=== PATIENT | male | born 1940 | race Caucasian/White ===

== ENCOUNTER → 2018-04-25 13:58 | Outpatient (CLI) | payer OTHER, MEDICARE, SELFPAY ==
--- NOTE | 2018-04-25 | DI.US.S_ITS ---
PROCEDURE: US ABDOMEN COMPLETE INDICATIONS: ABDOMINAL MASS TECHNIQUE: Real-time scanning was performed of the abdominal and retroperitoneal organs, with image documentation. COMPARISON: None. FINDINGS: Liver: Liver is normal in size and homogeneous in echotexture. Gallbladder: No gallstones identified. Normal gallbladder wall. No pericholecystic fluid. Negative sonographic Nunez sign. Biliary ducts: Intrahepatic bile ducts are non-dilated. Extrahepatic bile duct not well-seen. Pancreas: Visualized portions of the pancreas are sonographically normal. Spleen: Spleen is normal in size and homogeneous in echotexture. Kidneys: Kidneys are normal in size and echotexture. Right kidney measures 10.2 cm long; left kidney measures 11.7 cm long. No hydronephrosis or nephrolithiasis. No solid masses. Aorta: Visualized aorta is normal in caliber at less than 3 cm. Iliacs: Proximal common iliac arteries are normal in caliber at less than 2.5 cm. IVC: Intrahepatic inferior vena cava is patent. Miscellaneous: No free abdominal fluid. IMPRESSION: No left upper quadrant mass identified. If there is clinical concern for mass, consider CT. Dictated by: Bon WOODRUFF Interpreted: Kaden Moon MD on 04/25/2018 at 15:51 Approved by: Kaden Moon M.D. on 04/25/2018 at 17:54
== END ==
PROVIDERS: PCP Family Medicine; Visit Provider Family Medicine
DX: R19.02 Left upper quadrant abdominal swelling, mass and lump (principal)
CPT/HCPCS: 76700

== ENCOUNTER → 2021-01-14 16:44 | Outpatient (CLI) | payer MEDICARE, OTHER, SELFPAY ==
--- NOTE | 2021-01-14 | DI.RAD.S_ITS ---
PROCEDURE: XR FOOT RT MIN 3V INDICATIONS: 1st mtp swelling right TECHNIQUE: 3 views of the foot were acquired. COMPARISON: None. FINDINGS: Bones: No acute fracture identified. Marginal lucency seen at 1st and 2nd MTP joints. 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 Hallux valgus appearance. Plantar and posterior calcaneal spurring. Soft tissues: Soft tissue swelling at the 1st MTP joint. No definite soft tissue calcifications. IMPRESSION: Soft tissue swelling at the 1st MTP joint. Marginal lucencies seen at the 1st and 2nd MTP joints raising possibility of erosions. Hallux valgus although weight-bearing views would be more specific Plantar and posterior calcaneal spurring. Dictated by: Harry Mcdonald M.D. on 01/15/2021 at 8:36 Approved by: Harry Mcdonald M.D. on 01/15/2021 at 8:43
== END ==
PROVIDERS: PCP Family Medicine; Referring Provider Family Medicine; Visit Provider Family Medicine
DX: R22.41 Localized swelling, mass and lump, right lower limb (principal); M20.11 Hallux valgus (acquired), right foot; M77.31 Calcaneal spur, right foot; M19.071 Primary osteoarthritis, right ankle and foot
CPT/HCPCS: 73630

== ENCOUNTER → 2021-01-27 09:02 | Outpatient (CLI) | payer MEDICARE, OTHER, SELFPAY ==
[2021-01-27 12:55] LABS: COVID-19 CEPHEID PCR (VTM/NP) Negative (Negative)
== END ==
PROVIDERS: PCP Family Medicine; Visit Provider Nurse Practitioner Family
DX: Z20.822 Contact with and (suspected) exposure to COVID-19 (principal)
CPT/HCPCS: C9803; U0003

== ENCOUNTER → 2021-02-14 08:41 | Outpatient (CLI) | payer MEDICARE, OTHER, SELFPAY ==
--- NOTE | 2021-02-14 | DI.ECHO.S_ITS ---
[facility] +---------+ : : [address] : [place] : : : : [id number] : : : : Phone: [phone]+ Echocardiogram Report + + :Name: THELMA FOWLER Study Date: 02/14/2021 Height: 70 in : :[facility] ReadingLocation: Weight: 185 lb : : Gender: Male BSA: 2.0 m2 : :: 1940 Age: 81 yrs BP: 124/80 mmHg: :Reason For Study: SOB : : Performed By: MISAEL GRIMM : :Referring: KENYATTA LOPES : + + Interpretation Summary 1) Normal left ventricular thickness, size, wall motion, and systolic function (EF 55-60%). 2) The right ventricle is moderately dilated and has normal function. 3) Severely enlarged right atrium. Moderate left atrial enlargement present. 4) No significant valvular abnormalities. 5) The right ventricular systolic pressure is estimated to be at least 18 mmHg based on an estimated right atrial pressure of 3 mm Hg. 6) No prior Echo available for comparison. Procedure: A two-dimensional transthoracic echocardiogram with color flow and Doppler was performed. The study quality was technically adequate. Fair apical window. There is no prior echocardiogram noted for this patient. The patient was in atrial fibrillation with heart rates between 74 - 90 bpm during the exam. Left Ventricle: The left ventricle is normal in size and wall thickness. The ejection fraction is estimated to be 55-60%. Beat -to-beat variation of EF due to afib. Diastolic function could not be accurately assessed due to atrial fibrillation. Right Ventricle: The right ventricle is moderately dilated. The right ventricular systolic function is normal. Atria: The left atrium is moderately dilated. The right atrium is severely dilated. There is no Doppler evidence for an interatrial shunt. The atrial septum is aneurysmal. Mitral Valve: The mitral valve is normal. There is trace mitral regurgitation. Aortic Valve: The aortic valve is trileaflet. The aortic valve opens well. There is no aortic valve stenosis. There is mild aortic regurgitation. Tricuspid Valve: The tricuspid valve is normal. There is mild tricuspid regurgitation. The right ventricular systolic pressure is estimated to be at least 18 mmHg based on an estimated right atrial pressure of 3 mm Hg. Pulmonic Valve: The pulmonic valve leaflets are thin and pliable; valve motion is normal. There is a trace or physiologic amount of pulmonic regurgitation. Great Vessels: The aortic root is normal size. The ascending aorta is at the upper limits of normal in size. The aortic arch is normal in size. The IVC is of normal diameter and collapses greater than 50% with a sniff. This suggests a low right atrial pressure of 3 mm Hg. Pericardium/ Pleura There is no pericardial effusion. There is an anterior echo-free space consistent with a fat pad. There is no pleural effusion. MMode/2D Measurements & Calculations LVIDd: 5.4 cm LVOT diam: 2.4 cm LVIDs: 3.1 cm Ao root diam: 3.5 cm FS: 43.8 % asc Aorta Diam: 3.7 cm IVSd: 1.0 cm Ao Arch Diam (Prox Trans): 2.7 cm LVPWd: 0.92 cm LV velez. diameter/BSA (cm/m^2): 2.7 LV sys. diameter/BSA (cm/m^2): 1.5 LA A2 area: 31.2 cm2 RA long axis: 6.0 cm LA A4 area: 20.4 cm2 RA area: 33.0 cm2 LA length (vol): 6.5 cm RA vol: 155.2 ml LA vol: 83.6 ml RA : 76.9 ml/m2 LA vol index: 41.4 ml/m2 RVD1 (basal): 5.2 cm TAPSE: 1.9 cm Doppler Measurements & Calculations Ao V2 max: 103.7 cm/sec LVOT Max Reid: 82.1 cm/sec Ao V2 mean: 78.8 cm/sec LV V1 max P.7 mmHg Ao max P.3 mmHg LV V1 VTI: 16.2 cm Ao mean P.6 mmHg PIERO(I,D): 3.7 cm2 Ao V2 VTI: 19.5 cm PIERO(V,D): 3.6 cm2 sev ratio: 0.83 PIERO indexed to BSA (cm^2/m^2): 1.9 MV E max reid: 72.3 cm/sec TR max reid: 191.7 cm/sec Med Peak E' Reid: 6.3 cm/sec TR max P.7 mmHg E/E' med: 11.5 Lat Peak E' Reid: 9.8 cm/sec E/E' lat: 7.4 E/e' average: 9.4 MV dec time: 0.21 sec SVLVOT): 73.0 ml Reading Physician:01:05 PM
== END ==
PROVIDERS: PCP Family Medicine; Referring Provider Family Medicine; Visit Provider Family Medicine
DX: I08.2 Rheumatic disorders of both aortic and tricuspid valves (principal); R06.02 Shortness of breath; I48.91 Unspecified atrial fibrillation
CPT/HCPCS: 93306

== ENCOUNTER → 2021-03-03 07:39 | Outpatient (CLI) | payer MEDICARE, OTHER, SELFPAY ==
--- NOTE | 2021-03-04 17:41 | DI.NM.S_ITS ---
DATE OF SERVICE: PROCEDURE: Exercise perfusion study. DATE OF STUDY: 03/03/2021 INDICATIONS: Atrial fibrillation. RADIOPHARMACEUTICAL: 26.4 millicurie technetium-99m Myoview IV was injected at stress and 27.5 millicurie technetium-99m Myoview IV was injected at rest. CARDIAC STRESS: The patient underwent exercise perfusion study under the supervision of an attending staff. The patient walked on [place] protocol for 4 minutes and achieved 131 percent of target heart rate. Baseline blood pressure 122/80. Heart rate about 107 beats per minute. Maximum heart rate reported to be 180. Baseline blood pressure 122/80 mmHg. Peak blood pressure 178/100 mmHg. The patient achieved 4.9 METS of workload. Functional aerobic impairment positive 9 percent. No chest pain. [place] moderate dyspnea. Baseline rhythm was atrial fibrillation. During stress, no new convincing ischemic changes seen. Some nonspecific ST/T changes seen. Intermittent PVCs were seen including bigeminy without any sustained ventricular tachycardia. RAW DATA: There is increased subdiaphragmatic activity. GATED STUDY: Stress LV ejection fraction 60 percent without any obvious wall motion abnormalities. Resting end-diastolic volume 124 mL. TID ratio 0.99 which is within normal limits. Lung/heart ratio 0.41, which is within normal limits. MYOCARDIAL PERFUSION SCAN: Stress supine and resting supine images revealed small size, moderately decreased perfusion of basal inferior wall, as well as inferior apex and distal anterior septum which got significantly improved during stress prone images, however stress prone images remain to have mildly decreased perfusion of distal anterior septum. No obvious reversible ischemia. CONCLUSION: I will call this study likely a normal myocardial perfusion study with evidence of diaphragmatic tissue attenuation artifact which got resolved during prone images. There is a predominantly fixed distal anterior septal wall defect without any significant defect of anterior wall. It goes against the diagnosis of anterior wall myocardial infarction. Likely patient has some persistent tissue attenuation artifact as well. Left ventricular function preserved with the left ventricular ejection fraction 60 percent without any obvious wall motion abnormalities. No transient ischemic dilatation. The patient has baseline atrial fibrillation with enhanced chronotropic response. As far as perfusion scan is concerned, this is a low-risk myocardial perfusion scan. Consider better rate control with atrial fibrillation. Jose Samm - AVI/catherine/beny doc#: [id number]/job#: [id number] dd: 03/04/2021 17:02:00 dt: 03/04/2021 17:31:00 DICTATING MD/COPIES TO: Louie Bradshaw MD COPIES MNE: TRAY;
== END ==
PROVIDERS: PCP Family Medicine; Referring Provider Family Medicine; Visit Provider Family Medicine
DX: I48.91 Unspecified atrial fibrillation; Z20.822 Contact with and (suspected) exposure to COVID-19; R06.00 Dyspnea, unspecified
CPT/HCPCS: 78452; 87635; 93017; C9803; A9502

== ENCOUNTER → 2021-03-03 09:12 | Outpatient (CLI) | payer MEDICARE, OTHER, SELFPAY ==
[2021-03-03 12:35] LABS: COVID19 -Nasal RAPID Negative (Negative)
== END ==
PROVIDERS: PCP Family Medicine; Visit Provider Nurse Practitioner Family
DX: Z01.812 Encounter for preprocedural laboratory examination (principal); Z20.822 Contact with and (suspected) exposure to COVID-19
CPT/HCPCS: 87635

== ENCOUNTER → 2021-03-17 09:52 | Outpatient (CLI) | payer MEDICARE, OTHER, SELFPAY ==
[2021-03-17 12:06] LABS: COVID19 -Nasal RAPID Negative (Negative)
== END ==
PROVIDERS: PCP Family Medicine; Visit Provider Physician Assistant
DX: Z20.822 Contact with and (suspected) exposure to COVID-19 (principal); Z01.812 Encounter for preprocedural laboratory examination
CPT/HCPCS: 87635; C9803

== ENCOUNTER → 2021-07-28 09:18 | Outpatient (CLI) | payer MEDICARE, OTHER, SELFPAY ==
[2021-07-28 10:52] LABS: COVID-19 CEPHEID PCR (VTM/NP) Negative (Negative)
== END ==
PROVIDERS: PCP Family Medicine; Visit Provider Nurse Practitioner Family
DX: Z20.822 Contact with and (suspected) exposure to COVID-19 (principal)
CPT/HCPCS: C9803; U0003; U0005

== ENCOUNTER → 2021-09-15 08:18 | Outpatient (CLI) | payer MEDICARE, OTHER, SELFPAY ==
[2021-09-15 08:47] LABS: Add Manual Diff / Slide Review NO; Basophils Absolute Auto 200 /uL (0-100); Basophils Percent Auto 3.5 % (0-2); Eosinophils Absolute Auto 100 /uL (0-450); Eosinophils Percent Auto 2.9 % (2-4); Hematocrit 30.7 % (41-53); Hemoglobin 10.5 g/dL (13.5-17.5); Lymphocytes Absolute Auto 1600 /uL (1100-4500); Lymphocytes Percent Auto 37.3 % (25-40); Mean Corpuscular HGB Conc 34.4 % (30-36); Mean Corpuscular Hemoglobin 38.7 PG (26-34); Mean Corpuscular Volume 112.6 fL (80-100); Monocytes Absolute Auto 400 /uL (0-900); Neutrophils Absolute Auto 2000 /uL (1500-7000); Neutrophils Percent Auto 47.3 % (50-75); Platelet Count 215 X10^3/uL (150-400); Red Blood Cell Count 2.72 X10^6/uL (4.5-5.9); Red Cell Distribution Width 17.3 % (11.6-14.8); White Blood Cell Count 4.3 X10^3/uL (4.5-11.0)
[2021-09-15 08:53] LABS: Alanine Aminotransferase 18 IU/L (<50); Albumin 4.4 g/dL (3.5-5.0); Albumin Globulin Ratio 1.8 (1.0-2.8); Alkaline Phosphatase 52 U/L (38-126); Aspartate Aminotransferase 28 IU/L (17-59); BUN Creatinine Ratio 17.9 (6-22); Bilirubin Total 1.2 mg/dL (0.2-1.3); Blood Urea Nitrogen 17 mg/dL (9-20); Calcium 8.7 mg/dL (8.4-10.2); Carbon Dioxide 26 mmol/L (22-32); Chloride 110 mmol/L (98-107); Estimated Glomerular Filt Rate > 60 mL/min (>60); Globulin 2.4 g/dL (1.7-4.1); Glucose 92 mg/dL (80-110); HEMOLYSIS < 15 (0-50); Lactate Dehydrogenase 520 U/L (313-618); Potassium 4.4 mmol/L (3.4-5.1); Sodium 140 mmol/L (137-145); Total Protein 6.8 g/dL (6.3-8.2); Uric Acid 5.5 mg/dL (3.5-8.5)
[2021-09-15 09:22] LABS: Anisocytosis 1+; Macrocytosis 1+; Target Cells 1+
== END ==
PROVIDERS: Internal Medicine Hematology & Oncology; PCP Family Medicine; Referring Provider Family Medicine; Visit Provider Family Medicine
DX: D46.9 Myelodysplastic syndrome, unspecified (principal); M10.00 Idiopathic gout, unspecified site
CPT/HCPCS: 36415; 80053; 83615; 84550; 85025

== ENCOUNTER → 2022-05-12 16:30 | Outpatient (CLI) | payer MEDICARE, OTHER, SELFPAY ==
--- NOTE | 2022-05-12 | DI.RAD.S_ITS ---
PROCEDURE: XR CHEST 2V INDICATIONS: fever TECHNIQUE: 2 views of the chest were acquired. COMPARISON: None. FINDINGS: Surgical changes and devices: None. Lungs and pleura: Lungs are clear. No pleural effusions or pneumothorax. Mediastinum: Mediastinal contours are normal. Heart size is normal. Bones and chest wall: No suspicious bony abnormalities. Soft tissues appear unremarkable. IMPRESSION: No acute cardiopulmonary disease process. Dictated by: Cristina Walls MD, PhD on 05/12/2022 at 17:05 Approved by: Cristina Walls MD, PhD on 05/12/2022 at 17:06
== END ==
PROVIDERS: PCP Family Medicine; Referring Provider Family Medicine; Visit Provider Family Medicine
DX: R50.9 Fever, unspecified (principal)
CPT/HCPCS: 0240U; 71046

== ENCOUNTER → 2022-05-12 17:56 | Outpatient (ROUT) | payer MEDICARE, OTHER, SELFPAY ==
[2022-05-12 19:46] LABS: Influenza A - CEPHEID Flu A NEGATIVE (NEGATIVE); Influenza B - CEPHEID Flu B NEGATIVE (NEGATIVE)
[2022-05-12 19:51] LABS: COVID-19 CEPHEID 4-PLEX PCR Negative (Negative)
== END ==
PROVIDERS: PCP Family Medicine; Visit Provider Family Medicine
DX: R50.9 Fever, unspecified (principal)
CPT/HCPCS: 0240U

== ENCOUNTER 2022-07-24 17:02 | Emergency (ER) | payer MEDICARE, OTHER, SELFPAY ==
[2022-07-24 17:18] VITALS: BP 146/81; PULSE 98; RESP 18; TEMP 36.7; O2SAT 99; BMI 25.8
[2022-07-24 17:34] LABS: Add Manual Diff / Slide Review NO; Basophils Absolute Auto 100 /uL (0-100); Basophils Percent Auto 2.2 % (0-2); Eosinophils Absolute Auto 100 /uL (0-450); Eosinophils Percent Auto 2.2 % (2-4); Hematocrit 32.5 % (41-53); Hemoglobin 11.2 g/dL (13.5-17.5); Lymphocytes Absolute Auto 2500 /uL (1100-4500); Lymphocytes Percent Auto 37.7 % (25-40); Mean Corpuscular HGB Conc 34.6 % (30-36); Mean Corpuscular Hemoglobin 38.5 PG (26-34); Mean Corpuscular Volume 111.3 fL (80-100); Monocytes Absolute Auto 600 /uL (0-900); Monocytes Percent Auto 8.8 % (3-14); Neutrophils Absolute Auto 3300 /uL (1500-7000); Neutrophils Percent Auto 49.1 % (50-75); Platelet Count 176 X10^3/uL (150-400); Red Blood Cell Count 2.92 X10^6/uL (4.5-5.9); White Blood Cell Count 6.6 X10^3/uL (4.5-11.0)
[2022-07-24 17:37] LABS: INR 1.4 (0.9-1.3); Prothrombin Time 15.6 SECONDS (10.1-12.7)
[2022-07-24 17:39] LABS: Appearance Urine UA CLOUDY; Bilirubin Urine UA 1+ (NEGATIVE); Color Urine UA BROWN; Glucose Urine UA NEGATIVE (Negative); Ketones Urine UA NEGATIVE (NEGATIVE); Leukocyte Esterase Urine UA NEGATIVE (NEGATIVE); Nitrite Urine UA NEGATIVE (Negative); Occult Blood Urine UA 3+ (Negative); Protein Urine UA 3+ (Negative); Specific Gravity Urine UA 1.025 (1.000-1.035); Urobilinogen Urine UA 0.2 E.U./dL (0.2)
[2022-07-24 17:42] LABS: Alanine Aminotransferase 24 IU/L (<50); Albumin 4.5 g/dL (3.5-5.0); Albumin Globulin Ratio 1.8 (1.0-2.8); Alkaline Phosphatase 54 U/L (38-126); Aspartate Aminotransferase 27 IU/L (17-59); BUN Creatinine Ratio 33.8 (6-22); Bilirubin Total 1.1 mg/dL (0.2-1.3); Blood Urea Nitrogen 25 mg/dL (9-20); Calcium 8.9 mg/dL (8.4-10.2); Carbon Dioxide 25 mmol/L (22-32); Chloride 105 mmol/L (98-107); Estimated Glomerular Filt Rate > 60 mL/min (>60); Globulin 2.5 g/dL (1.7-4.1); Glucose 92 mg/dL (80-110); HEMOLYSIS < 15 (0-50); Lipase 152 U/L (23-300); Potassium 4.1 mmol/L (3.4-5.1); Sodium 138 mmol/L (137-145)
[2022-07-24 17:45] LABS: Ictotest Urine Negative (Negative); RBC Urine >100/HPF (0-5/HPF)
[2022-07-24 17:48] LABS: Bacteria Urine Occasional (0-1); Culture Indicated Urine Specimen Cultured; WBC Urine 5-10/HPF (0-5/HPF)
--- NOTE | 2022-07-24 17:56 | ED_ITS ---
HPI - Male Genitourinary General Chief complaint: Urogenital-Male Stated complaint: Blood in urine Time Seen by Provider: 07/24/22 17:19 Source: patient and family Mode of arrival: Ambulatory History of Present Illness HPI Narrative: 82-year-old male nonsmoker with history of AFib on Eliquis and gout presents with a chief complaint of painless hematuria earlier in the day. He states that over the past few days he did feel some decreased in his ability to evacuate his bladder but no pain in his abdomen or flank. He denies any dysuria, frequency or urgency. He has had no fever or chills and denies any back pain. He is not dizzy nor weak or lightheaded. Denies chest pain, shortness of breath or cough. He denies any other abnormal bleeding. He states that earlier today when he urinated he thinks it was at least 50% blood and 50% urine. Related Data Home Medications Medication Instructions Recorded Confirmed allopurinol 300 mg tablet 500 mg PO DAILY 02/24/21 03/23/22 apixaban 5 mg tablet (Eliquis) 5 mg PO BID 09/22/21 12/22/21 Allergies Allergy/AdvReac Type Severity Reaction Status Date / Time No Known Drug Allergies Allergy Verified 09/30/20 12:01 Review of Systems Review of Systems Narrative: GENERAL: Denies chills, fatigue, malaise, fever, sweats. HEENT: Denies sinus pain, ear pain, sore throat, difficulty swallowing, dizziness. RESPIRATORY: Denies dyspnea, cough, wheezing, hemoptysis, sputum. CARDIOVASCULAR: Denies chest pain, palpitations, orthopnea, edema, GASTROINTESTINAL: Denies nausea, vomiting, abdominal pain, diarrhea, constipation, melena. : See HPI MUSCULOSKELETAL: denies weakness, joint pain, or bony pain SKIN: Denies rash, skin lesions, or other NEUROLOGIC: Denies weakness, headache, numbness, change in speech, confusion, seizures, incoordination. PSYCHIATRIC: No concerning psychosocial issues. 12 point review of systems is negative except for those stated above Patient History Medical History Prostate cancer Surgical History History of appendectomy Family History Father Heart disease Social History Smoking Status: Never smoker alcohol intake: current (A good size glass wine daily) substance use type: does not use Smoking Status: Never smoker alcohol intake frequency: 0-2 drinks per day Substance Use Type: does not use Exam Narrative Exam Narrative: GENERAL: [82] year old patient appears stated age. Well-developed patient, in mild distress. HEAD: Atraumatic. Normocephalic. EYES: Pupils equal round and reactive. Extraocular motions intact. No scleral icterus. No injection or drainage. ENT: Nose without bleeding, purulent drainage. Throat without erythema, tonsillar hypertrophy or exudate. Airway patent. NECK: Trachea midline. Non tender CARDIOVASCULAR: Regular rate and rhythm without murmurs, gallops, or rubs. RESPIRATORY: Clear to auscultation. Breath sounds equal bilaterally. No wheezes, rales, or rhonchi. GASTROINTESTINAL: Abdomen soft, non-tender, nondistended. EXTREMITIES: No edema or joint tenderness. BACK: Nontender without deformity or crepitance. No flank tenderness. NEURO: AOx3. SKIN: No rash or erythema of visible areas Initial Vital Signs Initial Vital Signs: Vital Signs Temperature 98.1 F 07/24/22 17:18 Pulse Rate 98 H 07/24/22 17:18 Respiratory Rate 18 07/24/22 17:18 Blood Pressure 146/81 H 07/24/22 17:18 Pulse Oximetry 99 07/24/22 17:18 Oxygen Delivery Method Room Air 07/24/22 17:18 Course Course Course Narrative: Initial urine was bloody though not violetta blood. There was an order for three- way Miranda with plans to irrigate to clear, however he produced a subsequent urine sample that was notably less bloody. Patient was observed for few hours and at the forearm dilia a repeat H&H was ordered and by then his urine had com pletely cleared of any gross blood. He continues to be asymptomatic and denies any dizziness, weakness or lightheadedness. He has no pain nor evidence of obvious ongoing bleeding Orders Ordered: ED Orders 07/24/22 22:45 Hemoglobin and Hematocrit Stat Discontinued Medications Lidocaine HCl (Lidocaine 2% (Glydo) 6 Ml Gel) 6 ml TOP NOW ONE Stop: 07/24/22 18:40 Vital Signs Vital signs: Vital Signs - 8 hr 07/25/22 00:20 Temperature 98 F Pulse Rate 74 Respiratory Rate 18 Blood Pressure 129/75 Pulse Oximetry 99 Oxygen Delivery Method Room Air MDM - Male Genitourinary Lab Data 07/24/22 22:45 07/24/22 17:22 Labs: Lab Results 07/24/22 07/24/22 07/24/22 Range/Units 17:22 17:22 17:22 WBC 6.6 (4.5-11.0) X10^3/uL RBC 2.92 L (4.5-5.9) X10^6/uL Hgb 11.2 L (13.5-17.5) g/dL Hct 32.5 L (41-53) % MCV 111.3 H (80-100) fL MCH 38.5 H (26-34) PG MCHC 34.6 (30-36) % RDW 19.0 H (11.6-14.8) % Plt Count 176 (150-400) X10^3/uL Neut % (Auto) 49.1 L (50-75) % Lymph % (Auto) 37.7 (25-40) % [place] % (Auto) 8.8 (3-14) % Eos % (Auto) 2.2 (2-4) % Baso % (Auto) 2.2 H (0-2) % Neut # (Auto) 3300 (1712-9084) /uL Lymph # (Auto) 2500 (9231-2105) /uL [place] # (Auto) 600 (0-900) /uL Eos # (Auto) 100 (0-450) /uL Baso # (Auto) 100 (0-100) /uL RBC Morphology See below Poikilocytosis 1+ H Anisocytosis 2+ H Macrocytosis 1+ H Target Cells 1+ H PT 15.6 H (10.1-12.7) SECONDS INR 1.4 H (0.9-1.3) Sodium 138 (137-145) mmol/L Potassium 4.1 (3.4-5.1) mmol/L Chloride 105 (98-107) mmol/L Carbon Dioxide 25 (22-32) mmol/L BUN 25 H (9-20) mg/dL Creatinine 0.74 (0.66-1.25) mg/dL Estimated GFR > 60 (>60) mL/min BUN/Creatinine Ratio 33.8 H (6-22) Glucose 92 (80-110) mg/dL Uric Acid 3.0 L (3.5-8.5) mg/dL Calcium 8.9 (8.4-10.2) mg/dL Total Bilirubin 1.1 (0.2-1.3) mg/dL AST 27 (17-59) IU/L ALT 24 (<50) IU/L Alkaline Phosphatase 54 (38-126) U/L Total Creatine Kinase (55-170) U/L CK-MB (CK-2) CK-MB (CK-2) Rel Index Troponin I (0.01-0.034) ng/mL Total Protein 7.0 (6.3-8.2) g/dL Albumin 4.5 (3.5-5.0) g/dL Globulin 2.5 (1.7-4.1) g/dL Albumin/Globulin Ratio 1.8 (1.0-2.8) Lipase 152 (23-300) U/L Urine Color Urine Appearance Urine pH (4.5-8.0) Ur Specific [place] (1.000-1.035) Urine Protein (Negative) Urine Glucose (UA) (Negative) g/dL Urine Ketones (NEGATIVE) Urine Occult Blood (Negative) Urine Nitrate (Negative) Urine Bilirubin (NEGATIVE) Ur Bilirubin Confirm (Negative) Urine Urobilinogen (0.2) E.U./dL Ur Leukocyte Esterase (NEGATIVE) Urine RBC (0-5/HPF) Urine WBC (0-5/HPF) Urine Bacteria (None) Ur Culture Indicated? 07/24/22 07/24/22 07/24/22 Range/Units 17:22 17:22 22:45 WBC (4.5-11.0) X10^3/uL RBC (4.5-5.9) X10^6/uL Hgb 11.0 L (13.5-17.5) g/dL Hct 31.3 L (41-53) % MCV (80-100) fL MCH (26-34) PG MCHC (30-36) % RDW (11.6-14.8) % Plt Count (150-400) X10^3/uL Neut % (Auto) (50-75) % Lymph % (Auto) (25-40) % [place] % (Auto) (3-14) % Eos % (Auto) (2-4) % Baso % (Auto) (0-2) % Neut # (Auto) (5193-8179) /uL Lymph # (Auto) (2150-7074) /uL [place] # (Auto) (0-900) /uL Eos # (Auto) (0-450) /uL Baso # (Auto) (0-100) /uL RBC Morphology Poikilocytosis Anisocytosis Macrocytosis Target Cells PT (10.1-12.7) SECONDS INR (0.9-1.3) Sodium (137-145) mmol/L Potassium (3.4-5.1) mmol/L Chloride (98-107) mmol/L Carbon Dioxide (22-32) mmol/L BUN (9-20) mg/dL Creatinine (0.66-1.25) mg/dL Estimated GFR (>60) mL/min BUN/Creatinine Ratio (6-22) Glucose (80-110) mg/dL Uric Acid (3.5-8.5) mg/dL Calcium (8.4-10.2) mg/dL Total Bilirubin (0.2-1.3) mg/dL AST (17-59) IU/L ALT (<50) IU/L Alkaline Phosphatase (38-126) U/L Total Creatine Kinase 56 (55-170) U/L CK-MB (CK-2) TNP CK-MB (CK-2) Rel Index TNP Troponin I < 0.012 (0.01-0.034) ng/mL Total Protein (6.3-8.2) g/dL Albumin (3.5-5.0) g/dL Globulin (1.7-4.1) g/dL Albumin/Globulin Ratio (1.0-2.8) Lipase (23-300) U/L Urine Color Brown Urine Appearance Cloudy Urine pH 5.0 (4.5-8.0) Ur Specific [place] 1.025 (1.000-1.035) Urine Protein 3+ H (Negative) Urine Glucose (UA) Negative (Negative) g/dL Urine Ketones Negative (NEGATIVE) Urine Occult Blood 3+ H (Negative) Urine Nitrate Negative (Negative) Urine Bilirubin 1+ H (NEGATIVE) Ur Bilirubin Confirm Negative (Negative) Urine Urobilinogen 0.2 (0.2) E.U./dL Ur Leukocyte Esterase Negative (NEGATIVE) Urine RBC >100/hpf H (0-5/HPF) Urine WBC 5-10/hpf H (0-5/HPF) Urine Bacteria Occasional (0-1) (None) Ur Culture Indicated? Specimen cultured MDM Narrative Medical decision making narrative: [82] year old patient presents with hematuria, resolving over the day Multiple etiologies for patient's symptoms considered including, but not limited to: [Hematuria related to anticoagulation, infection, kidney stone versus other] Prior Charts reviewed in our EMR Primary Historian: patient Labs reviewed and interpreted by myself: No leukocytosis, left shift or anemia, H and H repeated and remained stable, chemistries and renal function at baseline. Large amount of blood and 1st urine with 5-10 WBCs Patient's symptoms improved over duration of stay with above-stated therapies. No evidence of ongoing bleeding or infection no need for bladder irrigation. Patient appropriate for discharge at this time given complete lack of symptoms or ongoing bleeding nor change in vital signs or blood counts Findings and discharge diagnosis discussed with patient/family followed by verbalization of understanding Return precautions discussed with patient/family whom verbalize understanding of diagnosis and plan Discharge Plan Departure Patient Disposition: Home Clinical Impression: Hematuria Instructions: DI for Hematuria Activity Restrictions/Additional Instructions: *You have been diagnosed with [painless hematuria, resolved. As we discussed your history and physical exam are reassuring and over the course of the visit your urine has cleared and is no longer bloody. Furthermore, we recheck your blood counts and they remained stable. *What to do: *Please continue to take your regular medications as directed. [ *Please follow up with your primary care provider in 2-3 days, call for an appointment. Let them know you were seen in the Emergency Department and that we ask that you be seen in follow up. We will electronically transmit a record of today's note if your PCP is in our system * also, as we discussed I have given you the contact information for local urology, please call the office Wednesday morning, let them know you were seen in the emergency department and we would like you seen in follow-up. *If you do not have a primary care provider please contact the [facility] Resource line at [phone]. They will ask some questions about your medical history and help get you set up with a doctor in the community. *Return to Emergency Department if you should have any new, worsening or concerning symptoms, such as [fever greater than 101 F, shaking chills, worsening pain, persistent vomiting or other bothersome symptoms] Prescriptions: No Action allopurinol 300 mg Tablet 500 mg PO DAILY Patient Comments: PT TAKES 300 MG AM, 200 MG PM Eliquis 5 mg Tablet 5 mg PO BID Referrals: Manas Brown MD [Physician] - Adrian Joshi MD [Primary Care Provider] - Stand Alone Forms: Patient Portal/API
[2022-07-24 18:20] LABS: Poikilocytosis 1+
[2022-07-24 18:21] LABS: Anisocytosis 2+; Macrocytosis 1+; Target Cells 1+
[2022-07-24 19:12] VITALS: BP 146/74; PULSE 64; RESP 18; O2SAT 99
[2022-07-24 19:25] LABS: Creatine Kinase 56 U/L (55-170)
[2022-07-24 19:37] LABS: Troponin I < 0.012 ng/mL (0.01-0.034)
[2022-07-24 22:59] LABS: Hematocrit 31.3 % (41-53)
[2022-07-25 00:20] VITALS: BP 129/75; PULSE 74; RESP 18; TEMP 36.6; O2SAT 99
== END 2022-07-24 23:58 | disposition home or self-care (01) ==
PROVIDERS: Emergency Medicine; Emergency Provider Emergency Medicine; PCP Family Medicine
DX: R31.9 Hematuria, unspecified (principal)
CPT/HCPCS: 36415; 51798; 80053; 81001; 82550; 83690; 84484; 84550; 85014; 85018; 85025; 85610; 87077; 87086; 87185; 87186; 99283

== ENCOUNTER → 2023-02-06 08:26 | Outpatient (CLI) | payer MEDICARE, OTHER, SELFPAY ==
[2023-02-06 09:45] LABS: Hematocrit 31.4 % (41-53); Hemoglobin 10.9 g/dL (13.5-17.5); Mean Corpuscular HGB Conc 34.7 % (30-36); Mean Corpuscular Hemoglobin 39.3 PG (26-34); Mean Corpuscular Volume 113.1 fL (80-100); Platelet Count 165 X10^3/uL (150-400); Red Blood Cell Count 2.78 X10^6/uL (4.5-5.9); Red Cell Distribution Width 18.4 % (11.6-14.8); White Blood Cell Count 3.7 X10^3/uL (4.5-11.0)
[2023-02-06 09:48] LABS: Hemoglobin A1C% w Est Avg Glu 4.9 % (4.0-6.0)
[2023-02-06 10:22] LABS: Alanine Aminotransferase 22 IU/L (<50); Albumin 4.3 g/dL (3.5-5.0); Alkaline Phosphatase 40 U/L (38-126); Aspartate Aminotransferase 24 IU/L (17-59); BUN Creatinine Ratio 34.9 (6-22); Bilirubin Total 1.5 mg/dL (0.2-1.3); Blood Urea Nitrogen 30 mg/dL (9-20); Calcium 9.2 mg/dL (8.4-10.2); Carbon Dioxide 25 mmol/L (22-32); Chloride 106 mmol/L (98-107); Cholesterol 143 mg/dL (140-199); Estimated Glomerular Filt Rate > 60 mL/min (>60); Globulin 2.2 g/dL (1.7-4.1); Glucose 95 mg/dL (80-110); HDL Cholesterol 53 mg/dL (40-60); HEMOLYSIS < 15 (0-50); LDL Cholesterol Calculated 81 mg/dL (<100); Potassium 4.4 mmol/L (3.4-5.1); Sodium 138 mmol/L (137-145); Total Protein 6.5 g/dL (6.3-8.2); Triglycerides 43 mg/dL (35-150); Uric Acid 3.8 mg/dL (3.5-8.5)
[2023-02-06 10:53] LABS: Prostate Specific Antigen 0.389 ng/mL (0.10-4.00)
== END ==
PROVIDERS: PCP Family Medicine; Referring Provider Family Medicine; Visit Provider Family Medicine
DX: R73.03 Prediabetes (principal); E78.5 Hyperlipidemia, unspecified; C61 Malignant neoplasm of prostate; D64.9 Anemia, unspecified; M10.00 Idiopathic gout, unspecified site; M10.9 Gout, unspecified
CPT/HCPCS: 36415; 80053; 80061; 83036; 84153; 84550; 85027

== ENCOUNTER → 2024-02-23 11:40 | Outpatient (CLI) | payer MEDICARE, OTHER, SELFPAY ==
--- NOTE | 2024-02-23 11:42 | DI.RAD.S_ITS ---
PROCEDURE: XR CHEST 2V INDICATIONS: Acute cough TECHNIQUE: 2 views of the chest were acquired. COMPARISON: [facility], CR, XR CHEST 2V, 05/12/2022, 16:35. FINDINGS: Surgical changes and devices: None. Lungs and pleura: Subtle hazy opacities are noted in bilateral lower lung diane concerning for small developing infiltrates. No pleural effusions or pneumothorax. Mediastinum: Mediastinal contours are normal. Heart size is normal. Bones and chest wall: No suspicious bony abnormalities. Soft tissues appear unremarkable. IMPRESSION: Finding is concerning for small developing infiltrates in bilateral lower lobes. No pleural effusion or pneumothorax. Dictated by: Kaden Moon M.D. on 02/23/2024 at 12:00 Approved by: Kaden Moon M.D. on 02/23/2024 at 12:01
== END ==
PROVIDERS: PCP Family Medicine; Referring Provider Family Medicine; Visit Provider Family Medicine
DX: R05.1 Acute cough (principal)
CPT/HCPCS: 71046

== ENCOUNTER → 2024-02-23 12:16 | Outpatient (ROUT) | payer MEDICARE, OTHER, SELFPAY ==
[2024-02-23 13:03] LABS: Influenza A - CEPHEID Flu A NEGATIVE (NEGATIVE); Influenza B - CEPHEID Flu B NEGATIVE (NEGATIVE); Respiratory Syncytial Virus Negative (Negative)
[2024-02-23 13:06] LABS: COVID-19 CEPHEID 4-PLEX PCR Negative (Negative)
== END ==
PROVIDERS: PCP Family Medicine; Visit Provider Family Medicine
DX: R50.9 Fever, unspecified (principal); R05.9 Cough, unspecified
CPT/HCPCS: 0241U